=== PATIENT | female | born 1970 | race Caucasian/White ===

== ENCOUNTER 2018-08-05 21:31 | Emergency (ER) | payer BC ==
[~2018-08-05] VITALS: Ht 172.7 cm; Wt 64.4 kg
[2018-08-05] MEDS ORDERED: ENAL10TA19 PO (22:06)
[2018-08-05] MEDS ORDERED: AMOX-427 PO (22:06)
[2018-08-05] MEDS ORDERED: DICYCLOMINE HCL LIQ 10 MG/5 ML UDC ONE (22:39)
[2018-08-05] MEDS ORDERED: MAG HYDROX/AL HYDROX/SIMETH 30 ML LIQUID UDC ONE (22:39)
[2018-08-05] MEDS ORDERED: MAG HYDROX/AL HYDROX/SIMETH 30 ML LIQUID UDC PO ONE (22:45)
[2018-08-05] MEDS ORDERED: DICYCLOMINE HCL LIQ 10 MG/5 ML UDC PO ONE (22:45)
[2018-08-05 22:52] VITALS: BP 124/70
== END 2018-08-05 22:53 | disposition home or self-care (01) ==
LOC: ER 21:33
DX: J02.9 Acute pharyngitis, unspecified (principal); R10.13 Epigastric pain; Z88.8 Allergy status to other drugs, medicaments and biological substances; Z79.899 Other long term (current) drug therapy
CPT/HCPCS: A4663

== ENCOUNTER 2018-11-11 19:27 | Emergency (ER) | payer BC ==
[~2018-11-11] VITALS: Ht 152.4 cm; Wt 66.7 kg
[~2018-11-11 19:27] MED LIST: AMOX-427 PO; ENAL10TA19 PO
[2018-11-11] MEDS ORDERED: OMEPRAZOLE DR 40 MG CAPSULE (20:02)
[2018-11-11] MEDS ORDERED: ENALAPRIL MALEATE 10 MG TAB (20:02)
--- NOTE | 2018-11-11 20:14 | NUR ---
Pt. ambulated into ED accompanied by daughter w/ c/o bilat., lower abdominal pain x 2 days w/ stated blood in urine, A/Ox4, denies SOB/WRIGHT/F/C/N/V/D, RR even and unlabored, speaks in clear and complete sentences,
[2018-11-11 20:26] LABS: *BILIRUBIN,URIN NEGATIVE (NEGATIVE); *BLOOD, URINE 3+ (NEGATIVE); *CLARITY,URINE CLOUDY (CLEAR); *KETONES,URINE NEGATIVE (NEGATIVE); *UROBILINOGEN,URINE 0.2 E.U./dl (NORMAL); LEUKOCYTE ESTERASE ,URINE NEGATIVE (NEGATIVE); NITRITE, URINE NEGATIVE (NEGATIVE); UGLUCOSE NEGATIVE (NEGATIVE)
--- NOTE | 2018-11-11 20:27 | NUR ---
Urine specimen collected and sent to lab, specimen is pink and cloudy
[2018-11-11 20:28] LABS: *URINE HCG, QUAL NEGATIVE (NEGATIVE)
[2018-11-11 20:29] LABS: *COLOR,URINE RED (YELLOW)
[2018-11-11 20:33] LABS: RBC,URINE TNTC /HPF (0-3); WBC,URINE 0-3 /HPF (0-3)
[2018-11-11] MEDS ORDERED: IV NORMAL SALINE 1000 ML BAG IV ONE (21:00)
[2018-11-11] MEDS ORDERED: ONDANSETRON 4 MG/2 ML VIAL IV ONE (21:00)
[2018-11-11] MEDS ORDERED: KETOROLAC TROMETHAMINE 30 MG INJ IVP ONE (21:00)
[2018-11-11 21:10] LABS: BASOPHILS # (AUTO) 0.1 K/uL (0.0-8.0); BASOPHILS % (AUTO) 1.4 % (0.0-2.0); EOSINOPHILS # (AUTO) 0.1 K/uL (0.0-0.7); EOSINOPHILS % (AUTO) 1.3 % (0.0-7.0); HEMOGLOBIN 12.4 g/dL (10.9-14.3); LYMPHOCYTES # (AUTO) 2.2 K/uL (20.0-40.0); LYMPHOCYTES % (AUTO) 38.9 % (20.5-51.5); MEAN CORPUSCULAR HEMOGLOBIN 29.7 uug (24.7-32.8); MEAN CORPUSCULAR HGB CONC 33 g/dL (32.3-35.6); MEAN CORPUSCULAR VOLUME 90.8 fL (75.5-95.3); MONOCYTES # (AUTO) 0.6 K/uL (2.0-10.0); MONOCYTES % (AUTO) 9.8 % (0.0-11.0); NEUTROPHILS # (AUTO) 2.8 K/uL (1.8-8.9); NEUTROPHILS % (AUTO) 48.6 % (38.5-71.5); PLATELET COUNT (AUTO) 330 K/uL (179-408); RED BLOOD CELL COUNT(AUTO) 4.18 MIL/uL (3.63-4.92); WHITE BLOOD COUNT (AUTO) 5.8 K/uL (3.8-11.8)
[2018-11-11] MEDS ORDERED: KETOROLAC TROMETHAMINE 15 MG INJ ONE (21:10)
[2018-11-11] MEDS ORDERED: ONDANSETRON 4 MG/2 ML VIAL ONE (21:10)
[2018-11-11 21:18] LABS: CREATININE 0.7 mg/dL (0.6-1.3)
--- NOTE | 2018-11-11 22:16 | NUR ---
Patient discharged to home in stable conditon. Written and verbal after care instructions given. Patient verbalizes understanding of instructions. Pt. d/c w/ prescription per MD order, d/c papers signed, all belongings w/ pt., ID band/IV removed, instructed not to drive, ambulated off unit w/ steady gait, NAD
== END 2018-11-11 22:20 | disposition home or self-care (01) ==
LOC: ER 19:27
DX: R31.0 Gross hematuria (principal); K21.9 Gastro-esophageal reflux disease without esophagitis; Z88.8 Allergy status to other drugs, medicaments and biological substances; Z79.899 Other long term (current) drug therapy
CPT/HCPCS: 36415; 76770; 80048; 81000; 81001; 84703; 85025; 96374; 96375; 99284; J1885; J2405; A4663; J7030

== ENCOUNTER 2020-08-28 21:05 | Inpatient (IN) | payer BC ==
[~2020-08-28] VITALS: Ht 170.2 cm; Wt 74.8 kg
[~2020-08-28 21:05] MED LIST changes: -AMOX-427 PO; -ENAL10TA19 PO; +ENALAPRIL MALEATE 10 MG TAB; +OMEPRAZOLE DR 40 MG CAPSULE
--- NOTE | 2020-08-28 21:29 | NUR ---
MD RAMÍREZ in room to do MSE.
--- NOTE | 2020-08-28 21:40 | NUR ---
installation and repair technician in room to draw labs.
[2020-08-28] MEDS ORDERED: IV NS 1000 ML 1,000 ML IV ONE (21:45)
[2020-08-28] MEDS ORDERED: ONDANSETRON 4 MG/2 ML VIAL IV ONE (21:45)
[2020-08-28] MEDS ORDERED: HYDROMORPHONE 1 MG/1 ML DISP.SYRIN IV ONE (21:45)
--- NOTE | 2020-08-28 21:45 | NUR ---
Patient states feeling nauseous and vomited twice.
[2020-08-28 21:52] LABS: BASOPHILS # (AUTO) 0.1 K/uL (0.0-8.0); BASOPHILS % (AUTO) 0.6 % (0.0-2.0); EOSINOPHILS % (AUTO) 0.2 % (0.0-7.0); HEMATOCRIT 38.3 % (31.2-41.9); HEMOGLOBIN 12.6 g/dL (10.9-14.3); LYMPHOCYTES # (AUTO) 1.1 K/uL (20.0-40.0); LYMPHOCYTES % (AUTO) 9.2 % (20.5-51.5); MEAN CORPUSCULAR HEMOGLOBIN 29.2 uug (24.7-32.8); MEAN CORPUSCULAR HGB CONC 33 g/dL (32.3-35.6); MEAN CORPUSCULAR VOLUME 88.6 fL (75.5-95.3); MONOCYTES # (AUTO) 0.6 K/uL (2.0-10.0); NEUTROPHILS # (AUTO) 9.7 K/uL (1.8-8.9); PLATELET COUNT (AUTO) 313 K/uL (179-408); RED BLOOD CELL COUNT(AUTO) 4.32 MIL/uL (3.63-4.92); WHITE BLOOD COUNT (AUTO) 11.4 K/uL (3.8-11.8)
[2020-08-28 21:55] LABS: CARBON DIOXIDE 27 mmol/L (21-32); CHLORIDE 101 mmol/L (98-107); CREATININE 0.8 mg/dL (0.6-1.3); GLUCOSE 158 mg/dL (74-106); POTASSIUM 4.8 mmol/L (3.5-5.1); UREA NITROGEN, BLOOD 18 mg/dL (7-18)
[2020-08-28 22:01] LABS: ALANINE AMINOTRANSFERASE 141 U/L (14-59); ALKALINE PHOSPHATASE 135 U/L (50-136); ASPARTATE AMINOTRANSFERASE 212 U/L (15-37); BILIRUBIN,DIRECT 0.6 mg/dL (0.0-0.2); BILIRUBIN,TOTAL 1.1 mg/dL (0.2-1.0); TOTAL PROTEIN, SERUM 6.8 g/dL (6.4-8.2)
[2020-08-28] MEDS ORDERED: LEVO500T90 PO (22:05)
[2020-08-28] MEDS ORDERED: HYDROMORPHONE 1 MG/1 ML DISP.SYRIN ONE (22:05)
[2020-08-28] MEDS ORDERED: ONDANSETRON 4 MG/2 ML VIAL ONE (22:05)
[2020-08-28 22:13] LABS: *BILIRUBIN,URIN NEGATIVE (NEGATIVE); *CLARITY,URINE CLEAR (CLEAR); *COLOR,URINE YELLOW (YELLOW); *KETONES,URINE 2+ (NEGATIVE); *UROBILINOGEN,URINE 0.2 E.U./dl (NORMAL); LEUKOCYTE ESTERASE ,URINE NEGATIVE (NEGATIVE); NITRITE, URINE NEGATIVE (NEGATIVE); PH,URINE 8.5 (5.0-8.0); UGLUCOSE NEGATIVE (NEGATIVE)
--- NOTE | 2020-08-28 22:15 | NUR ---
Patient desating on SpO2 to 86%. Patient given O2 via N/C 2 LPM: SpO2 increased to 100%.
[2020-08-28 22:24] LABS: *BLOOD, URINE TRACE (NEGATIVE)
[2020-08-28 22:26] LABS: RBC,URINE 0-3 /HPF (0-3); WBC,URINE NONE SEEN /HPF (0-3)
[2020-08-28 22:27] LABS: *URINE HCG, QUAL NEGATIVE (NEGATIVE); BACTERIA,URINE NONE SEEN /HPF (NONE SEEN); SQUAMOUS EPITHELIAL CELL,UR FEW /HPF (NONE SEEN)
--- NOTE | 2020-08-28 22:30 | NUR ---
Patient states feeling pain of right AC, IV infiltrated. New one placed: 20g L AC
[2020-08-28 22:41] LABS: LIPASE > 6000 U/L (73-393)
--- NOTE | 2020-08-28 22:45 | NUR ---
U/S tech in room to do ultrasound on patient.
[2020-08-28] MEDS ORDERED: IV NORMAL SALINE 250 ML IV ONE (22:49)
[2020-08-28] MEDS ORDERED: SWABABLE VALVE TRANSFER SET EA MC ONE (22:49)
[2020-08-28] MEDS ORDERED: IOHEXOL 300MG/ML 100 ML INFUS..BTL ONE (22:49)
--- NOTE | 2020-08-28 23:16 | NUR ---
transport tech in room to take patient to get CT with contrast.
--- NOTE | 2020-08-28 23:43 | NUR ---
Patient returned from CT scan with contrast.
--- NOTE | 2020-08-29 | NUR ---
Patient is resting on bed, semi-fowlers. No longer gaurding her abdomen.
[2020-08-29] MEDS ORDERED: ENAL-80 PO (00:09)
[2020-08-29] MEDS ORDERED: GABA-532 PO (00:09)
[2020-08-29] MEDS ORDERED: ESCI5TAB PO (00:09)
[2020-08-29] MEDS ORDERED: CALC-953 PO (00:09)
[2020-08-29] MEDS ORDERED: IV LACTATED RINGERS SOLUTION 1,000 ML IV ONE (00:15)
[2020-08-29] MEDS ORDERED: HYDROMORPHONE 1 MG/1 ML DISP.SYRIN IV ONE (00:15)
--- NOTE | 2020-08-29 00:45 | NUR ---
CT with Contrast results received, MD Tse requested for [facility] to be called. MD Alfredo paged.
--- NOTE | 2020-08-29 00:53 | NUR ---
MD Alfredo called back, call transferred to MD Tse.
[2020-08-29] MEDS ORDERED: HYDROCODONE/APAP 5-325MG TABLET PO PRN (01:00)
[2020-08-29] MEDS ORDERED: MAGNESIUM HYDROXIDE 30 ML LIQUID UDC PO PRN (01:00)
[2020-08-29] MEDS ORDERED: Z GUARD REMEDY PASTE 57 GM TUBE TOP PRN (01:00)
[2020-08-29] MEDS ORDERED: ACETAMINOPHEN 325 MG TABLET PO PRN (01:00)
[2020-08-29] MEDS ORDERED: PIPERACILLIN SODIUM/TAZOBACTAM 3.375 G in IV DEXTROSE 5% 50 ML IV ONE (01:00)
[2020-08-29] MEDS ORDERED: PIPERACILLIN/TAZOBACTAM/D5W 50 ML IV ONE (01:19)
[2020-08-29] MEDS: IV NS 1000 ML 1,000 ML IV SCH ×2 (01:20→02:15)
--- NOTE | 2020-08-29 01:45 | NUR ---
nuclear medical tech notified, pt is COVID negative.
--- NOTE | 2020-08-29 01:46 | NUR ---
Report given to SUKI Hendrix.
--- NOTE | 2020-08-29 02:08 | NUR ---
Note brenda in ED - 08/29/20 at 0221 by TRISTA Pt. admitted to Med/Surg 308, under care of Dr. Osorio. Belongs List completed, transported with all original paperwork.
--- NOTE | 2020-08-29 02:08 | NUR ---
Pt. admitted to Med/Surg 308, under care of Dr. Alfredo. Belongs List completed, transported with all original paperwork.
--- NOTE | 2020-08-29 02:15 | NUR ---
Admitted patient to Med Surg unit from ER via [facility] accompanied by ER.Patient awake ALOx4. IV on left AC 20g patent and intact with IVF NS running at 100 cc/hr. Patient feeling nauseous.Medicated with zofran IVP with good result. Patient also c/o abd'l pain 8/10.Noted with facial grimaces. Morphine IVP given.Skin assessment done.No skin breakdown. Patient ambulates to bathroom.Safety measures in place. Call light with in reach .Will continue to monitor.VSS
[2020-08-29 02:20] VITALS: BP 127/71
[2020-08-29] MEDS: ONDANSETRON 4 MG/2 ML VIAL IV PRN ×2 (02:30→08:34)
[2020-08-29] MEDS: MORPHINE SULFATE 2 MG/1 ML DISP.SYRIN IV PRN ×2 (03:05→07:52)
[2020-08-29 04:00] VITALS: BP_SYST 120; BP_DIAS 85; BP_DIAS 89
[2020-08-29 06:44] LABS: BASOPHILS % (AUTO) 0.1 % (0.0-2.0); HEMATOCRIT 35.1 % (31.2-41.9); HEMOGLOBIN 11.9 g/dL (10.9-14.3); LYMPHOCYTES # (AUTO) 0.5 K/uL (20.0-40.0); MEAN CORPUSCULAR HGB CONC 34 g/dL (32.3-35.6); MEAN CORPUSCULAR VOLUME 88.8 fL (75.5-95.3); MONOCYTES # (AUTO) 0.5 K/uL (2.0-10.0); MONOCYTES % (AUTO) 4.7 % (0.0-11.0); NEUTROPHILS # (AUTO) 8.7 K/uL (1.8-8.9); NEUTROPHILS % (AUTO) 90.2 % (38.5-71.5); PLATELET COUNT (AUTO) 267 K/uL (179-408); RED BLOOD CELL COUNT(AUTO) 3.96 MIL/uL (3.63-4.92); WHITE BLOOD COUNT (AUTO) 9.6 K/uL (3.8-11.8)
[2020-08-29] MEDS ORDERED: ESCITALOPRAM OXALATE 10 MG TABLET PO SCH (09:00)
[2020-08-29] MEDS ORDERED: CALCIUM CARB/VITAMIN D 500MG-200UNITS TABLET PO SCH (09:00)
[2020-08-29] MEDS ORDERED: levoFLOXacin 500 MG TABLET PO SCH (09:00)
[2020-08-29] MEDS ORDERED: ENALAPRIL 10 MG TABLET PO SCH (09:00)
[2020-08-29] MEDS: GABAPENTIN 100 MG CAPSULE PO SCH ×2 (09:00→17:05)
[2020-08-29 09:14] LABS: CARBON DIOXIDE 26 mmol/L (21-32); CHLORIDE 104 mmol/L (98-107); CHOLESTEROL 205 mg/dL (<200); CREATININE 0.6 mg/dL (0.6-1.3); GLUCOSE 124 mg/dL (74-106); HDL CHOLESTEROL 61 mg/dL (40-60); MAGNESIUM 1.8 mg/dL (1.8-2.4); PHOSPHOROUS 3.9 mg/dL (2.5-4.9); POTASSIUM 4.3 mmol/L (3.5-5.1); TRIGLYCERIDES 63 MG/DL (30-150); UREA NITROGEN, BLOOD 14 mg/dL (7-18)
[2020-08-29 10:00] LABS: LIPASE > 6000 U/L (73-393)
[2020-08-29] MEDS: levoFLOXacin 500 MG/D5W 500 MG in PREMIXED 1 EACH IV SCH (10:30)
[2020-08-29 11:47] VITALS: BP 138/75
[2020-08-29] MEDS: METOCLOPRAMIDE HCL 10 MG/2 ML VIAL IV SCH ×3 (12:20→23:46)
[2020-08-29] MEDS: HYDROMORPHONE 1 MG/1 ML DISP.SYRIN IV PRN ×3 (12:52→23:51)
[2020-08-29 16:00] VITALS: BP 114/60
--- NOTE | 2020-08-29 17:56 | NUR ---
Pt continue to complain of pain in abdomen, as ordered PRN pain medication administered, tolerated well; complain of nausea, administered with PRN zofran, and MD added Q6 reglan, continue with IVF NS running at 100 cc/hr, patent no edema, no redness. she was also given IV levaquin 500mg QD. Diet was changed to clear liquid. pt able to ambulate with BRP. frequent visual check done for safety. needs attended to and met. will continue to monitor
--- NOTE | 2020-08-29 19:30 | NUR ---
RECEIVED PT AWAKE, ALERT AND ORIENTEDX4. PT IN NO ACUTE DISTRESS. IV INTACT. OBSERVED PT HAS REDNESS/RASH ON FACE AND CHEST AREA. SAFETY AND COMFORT PROVIDED. WILL CONTINUE TO MONITOR.
[2020-08-29 20:00] VITALS: BP 120/64
[2020-08-29] MEDS ORDERED: diphenhydrAMINE 25 MG CAP PO PRN (20:15)
[2020-08-29] MEDS: IV NS 1000 ML 1,000 ML IV PRN (20:50)
--- NOTE | 2020-08-29 20:55 | NUR ---
NOTIFY THAT PT COMPLAIN OF ITCHINESS AND REDNESS ON FACE AND CHEST AREA. DR ORDERED BENADRYL PRN FOR PT. KATIE NEVAREZ NP ORDERED FOR NORMAL SALINE Q10H PRN AT 100ML/HR.
[2020-08-30 04:00] VITALS: BP 105/55
[2020-08-30] MEDS: METOCLOPRAMIDE HCL 10 MG/2 ML VIAL IV SCH ×4 (05:58→23:40)
--- NOTE | 2020-08-30 06:34 | NUR ---
PT SLEPT INTERMITTENTLY. PT IN NO ACUTE DISTRESS. IV INTACT. PRESCRIBED MEDICATION GIVEN AND PT TOLERATED IT WELL. AT 2351H DILAUDID INJ 0.5MG PRN WAS GIVEN TO PT FOR PAIN. AFTER AN HOUR PT STATED SHE FELT RELIEVED. BENADRYL PRN GIVEN AT 25MG FOR ITCHINESS. SAFETY AND COMFORT PROVIDED. ALL NEEDS ARE MET. WILL ENDORSE TO INCOMING NURSE FOR CONTINUITY OF CARE.
[2020-08-30 06:39] LABS: BASOPHILS % (AUTO) 0.2 % (0.0-2.0); HEMATOCRIT 34.4 % (31.2-41.9); HEMOGLOBIN 11.3 g/dL (10.9-14.3); LYMPHOCYTES # (AUTO) 0.7 K/uL (20.0-40.0); LYMPHOCYTES % (AUTO) 6.9 % (20.5-51.5); MEAN CORPUSCULAR HEMOGLOBIN 29.2 uug (24.7-32.8); MEAN CORPUSCULAR HGB CONC 33 g/dL (32.3-35.6); MEAN CORPUSCULAR VOLUME 89.3 fL (75.5-95.3); MONOCYTES # (AUTO) 0.8 K/uL (2.0-10.0); NEUTROPHILS # (AUTO) 8.9 K/uL (1.8-8.9); NEUTROPHILS % (AUTO) 84.9 % (38.5-71.5); PLATELET COUNT (AUTO) 258 K/uL (179-408); RED BLOOD CELL COUNT(AUTO) 3.85 MIL/uL (3.63-4.92); WHITE BLOOD COUNT (AUTO) 10.5 K/uL (3.8-11.8)
[2020-08-30] MEDS: IV NS 1000 ML 1,000 ML IV PRN ×2 (06:51→19:28)
[2020-08-30] MEDS: HYDROMORPHONE 1 MG/1 ML DISP.SYRIN IV PRN ×3 (06:52→19:37)
[2020-08-30 06:55] LABS: ALANINE AMINOTRANSFERASE 70 U/L (14-59); ALKALINE PHOSPHATASE 86 U/L (50-136); ASPARTATE AMINOTRANSFERASE 37 U/L (15-37); BILIRUBIN,DIRECT 0.2 mg/dL (0.0-0.2); BILIRUBIN,TOTAL 0.8 mg/dL (0.2-1.0); CARBON DIOXIDE 29 mmol/L (21-32); CHLORIDE 105 mmol/L (98-107); CREATININE 0.5 mg/dL (0.6-1.3); GLUCOSE 103 mg/dL (74-106); MAGNESIUM 1.8 mg/dL (1.8-2.4); POTASSIUM 3.6 mmol/L (3.5-5.1); TOTAL PROTEIN, SERUM 5.5 g/dL (6.4-8.2); UREA NITROGEN, BLOOD 10 mg/dL (7-18)
--- NOTE | 2020-08-30 07:19 | NUR ---
Dilaudid prn given at 0652h for abdominal pain. Pt tolerated it well. Pt stated it helped with the pain. Pt vital signs stable. Will continue to monitor.
[2020-08-30 07:26] LABS: LIPASE 9675 U/L (73-393)
--- NOTE | 2020-08-30 07:30 | NUR ---
Received patient awake in bed. On room air. No signs of acute distress. Patient with left antecubital IV access 20gauge with NS running at 100ml/hr. Patient denies of any pain or discomfort at this time. Will continue to monitor.
[2020-08-30] MEDS: GABAPENTIN 300 MG CAPSULE PO SCH ×2 (08:27→16:30)
[2020-08-30] MEDS: levoFLOXacin 500 MG/D5W 500 MG in PREMIXED 1 EACH IV SCH (09:31)
[2020-08-30 11:43] VITALS: BP 106/64
[2020-08-30 16:00] VITALS: BP 113/69
--- NOTE | 2020-08-30 19:15 | NUR ---
Received pt sitting in bed, A&Ox4, verbally responsive, able to make needs known. No s/s of respiratory distress, abdominal pain of 8/10 reported. IVF infusing well on L AC. Safety and comfort measures initiated, call light within reach, will continue to monitor.
--- NOTE | 2020-08-30 19:30 | NUR ---
Patient awake resting in bed. Alert and oriented x 4. No signs of acute distress. IV NS running at 100cc/hr. Safety and comfort measures provided. Compliant with medications and tolerated well. Will endorse to incoming shift.
[2020-08-30 20:05] VITALS: BP 128/78
[2020-08-31] MEDS: HYDROMORPHONE 1 MG/1 ML DISP.SYRIN IV PRN ×5 (00:17→22:34)
[2020-08-31 02:05] VITALS: BP 128/78
[2020-08-31 04:05] VITALS: BP 104/66
[2020-08-31] MEDS: METOCLOPRAMIDE HCL 10 MG/2 ML VIAL IV SCH ×3 (05:58→16:42)
[2020-08-31] MEDS: IV NS 1000 ML 1,000 ML IV PRN ×2 (06:07→16:46)
--- NOTE | 2020-08-31 06:20 | NUR ---
Pt slept intermittently through the night. No s/s of respiratory distress. PRN pain medication given as ordered. Tolerated medications well. IVF infusing well on L AC. Safety and comfort measures maintained, call light within reach, all needs attended.
[2020-08-31 06:37] LABS: BASOPHILS % (AUTO) 0.3 % (0.0-2.0); EOSINOPHILS % (AUTO) 0.1 % (0.0-7.0); HEMATOCRIT 29.5 % (31.2-41.9); LYMPHOCYTES % (AUTO) 8.7 % (20.5-51.5); MEAN CORPUSCULAR HEMOGLOBIN 30.5 uug (24.7-32.8); MEAN CORPUSCULAR HGB CONC 34 g/dL (32.3-35.6); MEAN CORPUSCULAR VOLUME 90.3 fL (75.5-95.3); MONOCYTES # (AUTO) 0.9 K/uL (2.0-10.0); MONOCYTES % (AUTO) 7.7 % (0.0-11.0); NEUTROPHILS # (AUTO) 9.4 K/uL (1.8-8.9); NEUTROPHILS % (AUTO) 83.2 % (38.5-71.5); PLATELET COUNT (AUTO) 229 K/uL (179-408); RED BLOOD CELL COUNT(AUTO) 3.27 MIL/uL (3.63-4.92); WHITE BLOOD COUNT (AUTO) 11.3 K/uL (3.8-11.8)
[2020-08-31 06:49] LABS: BILIRUBIN,DIRECT 0.5 mg/dL (0.0-0.2); BILIRUBIN,TOTAL 0.9 mg/dL (0.2-1.0); CREATININE 0.6 mg/dL (0.6-1.3); MAGNESIUM 1.8 mg/dL (1.8-2.4); POTASSIUM 3.4 mmol/L (3.5-5.1)
[2020-08-31] MEDS: levoFLOXacin 500 MG/D5W 500 MG in PREMIXED 1 EACH IV SCH (08:30)
[2020-08-31] MEDS: GABAPENTIN 300 MG CAPSULE PO SCH ×2 (08:30→16:43)
[2020-08-31] MEDS ORDERED: POTASSIUM CHLORIDE 20 MEQ TAB.PRT.SR PO SCH (10:00)
--- NOTE | 2020-08-31 11:15 | NUR ---
D/C TO HOME VIA PRIVATE RIDE. D/C INSTRUCTIONS DISCUSSED. STATES SHE HAS AN APPT ON THURSDAY OF NEXT WEEK FOR HER F/U WITH SURGEON. STATES SHE HAS RECEIVED HER PRESCRIPTIONS FROM THE MD. VERBALIZED UNDERSTANDING OF ALL D/C INSTRUCTIONS. REFUSED SURGICAL D/C PICS. SHE SAYS SHE WILL LET HER DOC LOOK AT IT DOES NOT WANT TO REMOVE HER DRSG. TAKEN TO CAR BY MINIATURE SET CONSTRUCTOR VIA W/C Addendum: 08/31/20 at 1210 by Bonny Dubois RN PLEASE DISREGARD THIS NOTE WRITTEN ON WRONG PT
[2020-08-31 11:56] VITALS: BP 102/61
[2020-08-31 16:04] VITALS: BP 103/60
[2020-08-31 20:01] VITALS: BP 115/72
[2020-08-31] MEDS: ACETAMINOPHEN 325 MG TABLET PO PRN (21:47)
--- NOTE | 2020-08-31 22:14 | NUR ---
Patient alert x4.On RA .No s/s of distress noted. Iv on Left AC patent and intact with IVF Ns running at 100 ml/hr.Tolerated well.Patient noted with temp of 101 . made aware with new order given noted and carried our.Tylenol given. UA collected and sent to lab. Will continue to monitor.
[2020-09-01] MEDS: METOCLOPRAMIDE HCL 10 MG/2 ML VIAL IV SCH ×4 (00:14→17:14)
[2020-09-01 01:04] LABS: *BILIRUBIN,URIN NEGATIVE (NEGATIVE); *BLOOD, URINE 2+ (NEGATIVE); *CLARITY,URINE CLEAR (CLEAR); *COLOR,URINE YELLOW (YELLOW); *KETONES,URINE 3+ (NEGATIVE); LEUKOCYTE ESTERASE ,URINE NEGATIVE (NEGATIVE); NITRITE, URINE NEGATIVE (NEGATIVE); PH,URINE 6.5 (5.0-8.0); UGLUCOSE NEGATIVE (NEGATIVE)
[2020-09-01 01:20] LABS: BACTERIA,URINE NONE SEEN /HPF (NONE SEEN); SQUAMOUS EPITHELIAL CELL,UR FEW /HPF (NONE SEEN); WBC,URINE 0-3 /HPF (0-3)
[2020-09-01 04:57] VITALS: BP 106/61
[2020-09-01] MEDS: IV NS 1000 ML 1,000 ML IV PRN (04:59)
[2020-09-01] MEDS: HYDROMORPHONE 1 MG/1 ML DISP.SYRIN IV PRN ×3 (06:50→18:52)
[2020-09-01 06:59] LABS: BASOPHILS % (AUTO) 0.3 % (0.0-2.0); EOSINOPHILS % (AUTO) 0.1 % (0.0-7.0); HEMATOCRIT 29.4 % (31.2-41.9); HEMOGLOBIN 9.7 g/dL (10.9-14.3); LYMPHOCYTES # (AUTO) 1.1 K/uL (20.0-40.0); LYMPHOCYTES % (AUTO) 10.9 % (20.5-51.5); MEAN CORPUSCULAR HEMOGLOBIN 29.5 uug (24.7-32.8); MEAN CORPUSCULAR HGB CONC 33 g/dL (32.3-35.6); MEAN CORPUSCULAR VOLUME 89.6 fL (75.5-95.3); MONOCYTES # (AUTO) 0.8 K/uL (2.0-10.0); MONOCYTES % (AUTO) 7.9 % (0.0-11.0); NEUTROPHILS # (AUTO) 7.9 K/uL (1.8-8.9); NEUTROPHILS % (AUTO) 80.8 % (38.5-71.5); PLATELET COUNT (AUTO) 230 K/uL (179-408); RED BLOOD CELL COUNT(AUTO) 3.29 MIL/uL (3.63-4.92); WHITE BLOOD COUNT (AUTO) 9.8 K/uL (3.8-11.8)
[2020-09-01 08:14] LABS: BILIRUBIN,DIRECT 0.2 mg/dL (0.0-0.2); BILIRUBIN,TOTAL 0.7 mg/dL (0.2-1.0); CREATININE 0.6 mg/dL (0.6-1.3); MAGNESIUM 2.1 mg/dL (1.8-2.4); POTASSIUM 3.8 mmol/L (3.5-5.1); TOTAL PROTEIN, SERUM 5.6 g/dL (6.4-8.2)
[2020-09-01] MEDS: GABAPENTIN 300 MG CAPSULE PO SCH ×2 (08:39→16:02)
--- NOTE | 2020-09-01 09:36 | NUR ---
ALERT AND ORIENTED IV SITE IS LEAKING WILL TRY TO REINSERT ONLY TOLERATED HER SOUP FROM HER CLEAR LIQUIDS DIET STATED NOT HUNGRY AT THIS TIME ALL NEEDS AND PERSONAL BELONGINGS ARE WITHIN EASY REACH DENIES NAUSEA OR VOMITING WILL CONTINUE TO OBSERVE.
--- NOTE | 2020-09-01 09:50 | NUR ---
IV REINSERTED TO HER RIGHT HAND GAUGE 20 WILL CONTINUE TO OBSERVE.
[2020-09-01] MEDS ORDERED: levoFLOXacin 500 MG TABLET PO SCH (10:00)
[2020-09-01 11:48] VITALS: BP 121/72
--- NOTE | 2020-09-01 14:06 | NUR ---
PATIENT SEEN AND EXAMINED BY KATIE NEVAREZ GRANULATOR WITH NEW ORDERS AND NOTED.
[2020-09-01] MEDS ORDERED: MEROPENEM 1 G in IV NORMAL SALINE 100 ML IV ONE (16:00)
[2020-09-01 16:08] VITALS: BP 122/66
--- NOTE | 2020-09-01 16:41 | NUR ---
REMAIN ON IVPB ATB ORDERED WITH NO ADVERSE OR ALLERGIC REACTIONS AT THIS TIME IV SITE RIGHT HAND REMAINS INTACT WITH NO S/S OF INFILTERATION AT THIS TIME.
--- NOTE | 2020-09-01 19:01 | NUR ---
CONSCENT FOR CT ABDOMEN AND PELVIS OBTAINED ORDERED CALLED THE RADIOLOGY DEPT AND BECAUSE PATIENT ATE DINNER THEY WILL BE HERE AT 9PM TO PICK HER UP FOR THE TESTS.PATIENT NOTIFIED.MEDICATED FOR C/O ABD PAIN ORDERED WILL CONTINUE TO OBSERVE.
[2020-09-01 19:57] VITALS: BP 105/65
[2020-09-01] MEDS ORDERED: SWABABLE VALVE TRANSFER SET EA MC ONE (21:05)
[2020-09-01] MEDS ORDERED: IV NORMAL SALINE 250 ML IV ONE (21:05)
[2020-09-01] MEDS ORDERED: IOHEXOL 300MG/ML 100 ML INFUS..BTL ONE (21:05)
--- NOTE | 2020-09-01 21:33 | NUR ---
Patient back from radiology dept for Ct abdomen and pelvis w/ contrast.Still c/o abd'l pain tolerable at this time.Refused pain medication at this time.Iv on right hand patent and intact.Adm IV ATb.No A/r noted. Will continue to monitor.
[2020-09-01] MEDS: MEROPENEM 1 G in IV NORMAL SALINE 100 ML IV SCH (23:18)
[2020-09-01] MEDS: ACETAMINOPHEN 325 MG TABLET PO PRN (23:29)
[2020-09-02] MEDS: METOCLOPRAMIDE HCL 10 MG/2 ML VIAL IV SCH ×4 (00:05→17:13)
[2020-09-02] MEDS: MEROPENEM 1 G in IV NORMAL SALINE 100 ML IV SCH (05:01)
[2020-09-02 05:42] VITALS: BP 104/64
[2020-09-02] MEDS: HYDROMORPHONE 1 MG/1 ML DISP.SYRIN IV PRN ×3 (06:55→21:24)
--- NOTE | 2020-09-02 06:57 | NUR ---
Patient awake.c/o abd'l pain.Medicated with Dilaudid IVP .No acute distress noted throughout the shift.VSS .Will endorse to oncoming shift.
[2020-09-02 07:03] LABS: BASOPHILS % (AUTO) 0.4 % (0.0-2.0); EOSINOPHILS % (AUTO) 0.4 % (0.0-7.0); HEMATOCRIT 26.7 % (31.2-41.9); HEMOGLOBIN 8.8 g/dL (10.9-14.3); LYMPHOCYTES # (AUTO) 0.9 K/uL (20.0-40.0); LYMPHOCYTES % (AUTO) 12.2 % (20.5-51.5); MEAN CORPUSCULAR HEMOGLOBIN 29.7 uug (24.7-32.8); MEAN CORPUSCULAR HGB CONC 33 g/dL (32.3-35.6); MEAN CORPUSCULAR VOLUME 90.1 fL (75.5-95.3); MONOCYTES # (AUTO) 0.8 K/uL (2.0-10.0); MONOCYTES % (AUTO) 10.3 % (0.0-11.0); NEUTROPHILS # (AUTO) 5.9 K/uL (1.8-8.9); NEUTROPHILS % (AUTO) 76.7 % (38.5-71.5); PLATELET COUNT (AUTO) 242 K/uL (179-408); RED BLOOD CELL COUNT(AUTO) 2.96 MIL/uL (3.63-4.92); WHITE BLOOD COUNT (AUTO) 7.7 K/uL (3.8-11.8)
[2020-09-02 07:23] LABS: ALANINE AMINOTRANSFERASE 34 U/L (14-59); ALKALINE PHOSPHATASE 86 U/L (50-136); ASPARTATE AMINOTRANSFERASE 23 U/L (15-37); BILIRUBIN,DIRECT 0.4 mg/dL (0.0-0.2); BILIRUBIN,TOTAL 0.4 mg/dL (0.2-1.0); CARBON DIOXIDE 29 mmol/L (21-32); CHLORIDE 105 mmol/L (98-107); CREATININE 0.5 mg/dL (0.6-1.3); GLUCOSE 111 mg/dL (74-106); MAGNESIUM 2.3 mg/dL (1.8-2.4); POTASSIUM 3.9 mmol/L (3.5-5.1); TOTAL PROTEIN, SERUM 5.1 g/dL (6.4-8.2); UREA NITROGEN, BLOOD 5 mg/dL (7-18)
[2020-09-02 07:41] LABS: LIPASE 144 U/L (73-393)
[2020-09-02] MEDS: GABAPENTIN 300 MG CAPSULE PO SCH ×2 (08:05→16:24)
--- NOTE | 2020-09-02 08:30 | NUR ---
PATIENT IS AWAKE ALERT AND ORIENTED WITH SOME LANGUAGE BARRIER BUT ABLE TO MAKE NEEDS KNOWN NO S/S OF PAIN OR DISCOMFORTS AT THIS TIME REMAIN ON ATB ORDERED WITH NO ADVERSE OR ALLERGIC REACTIONS AT THIS TIME BREAKFAST SERVED ORDERED PATIENT STATED NOT HUNGRY YET WILL ATTEMPT TO EAT LATER.CALL LIGHTS AND HER PERSONAL BELONGINGS ARE WITHIN EASY REACH NOT IN DISTRESS AT THIS TIME
[2020-09-02] MEDS: levoFLOXacin 750MG/D5W 750 MG in PREMIXED 1 EACH IV SCH (09:26)
[2020-09-02 11:39] VITALS: BP 111/66
--- NOTE | 2020-09-02 13:45 | NUR ---
PATIENT AWARE THAT SHE WILL HAVE PARACENTESIS WAS EXPLAINED TO HER AND HER DAUGHTER BY ROQUE MCGOVERN AND SHE EXPRESSED UNDERSTANDING AND SIGNED CONSCENT.
[2020-09-02] MEDS ORDERED: PIPERACILLIN SODIUM/TAZOBACTAM 4.5 G in IV DEXTROSE 5% 50 ML IV ONE (14:00)
--- NOTE | 2020-09-02 15:28 | NUR ---
REMAIN ON ATB ORDERED WITH NO ADVERSE OR ALLERGIC REACTIONS AT THIS TIME CONTINUE TO REQUIRE PAIN MEDICATIONS GIVEN ORDERED AND EFFECTIVE.WILL CONTINUE TO OBSERVE.
[2020-09-02 16:00] VITALS: BP 104/62
--- NOTE | 2020-09-02 16:49 | NUR ---
UP OUT OF ROOM AMBULATING IN THE HALLWAY WITH STEADY GAIT DENIES DISCOMFORTS AT THIS TIME AWAITING FOR RADIOLOGY RE ETA FOR PARACENTESIS ORDERED.
--- NOTE | 2020-09-02 18:00 | NUR ---
RESTING DENIES DISCOMFORTS DENIES PAIN OR DISCOMFORTS AT THIS TIME WILL CONTINUE TO OBSERVE.
[2020-09-02] MEDS: ACETAMINOPHEN 325 MG TABLET PO PRN (19:41)
[2020-09-02 20:15] VITALS: BP 115/67
[2020-09-02] MEDS: PIPERACILLIN SODIUM/TAZOBACTAM 3.37 G in IV DEXTROSE 5% 100 ML IV SCH (21:23)
--- NOTE | 2020-09-02 22:21 | NUR ---
Patient febrile 100.1 .Tylenol given. No acute distress noted. On RA .Iv on right hand .Administered IV ATB as ordered.No a/r noted.Temp went down 98.8 .Patient c/o abd'l pain.Medicated with Dilaudid IVP.Bm x1 this A.M per patient.Will continue to monitor.
[2020-09-03] MEDS: METOCLOPRAMIDE HCL 10 MG/2 ML VIAL IV SCH ×5 (00:15→23:10)
[2020-09-03] MEDS: HYDROMORPHONE 1 MG/1 ML DISP.SYRIN IV PRN ×3 (03:48→20:27)
[2020-09-03] MEDS: PIPERACILLIN SODIUM/TAZOBACTAM 3.37 G in IV DEXTROSE 5% 100 ML IV SCH ×3 (05:32→21:12)
[2020-09-03 05:34] VITALS: BP 121/71
[2020-09-03 06:50] LABS: BASOPHILS % (AUTO) 0.4 % (0.0-2.0); EOSINOPHILS # (AUTO) 0.1 K/uL (0.0-0.7); EOSINOPHILS % (AUTO) 0.9 % (0.0-7.0); HEMATOCRIT 25.7 % (31.2-41.9); HEMOGLOBIN 8.7 g/dL (10.9-14.3); LYMPHOCYTES # (AUTO) 0.9 K/uL (20.0-40.0); LYMPHOCYTES % (AUTO) 12.9 % (20.5-51.5); MEAN CORPUSCULAR HEMOGLOBIN 30.1 uug (24.7-32.8); MEAN CORPUSCULAR HGB CONC 34 g/dL (32.3-35.6); MEAN CORPUSCULAR VOLUME 88.8 fL (75.5-95.3); MONOCYTES # (AUTO) 0.7 K/uL (2.0-10.0); MONOCYTES % (AUTO) 10.4 % (0.0-11.0); NEUTROPHILS # (AUTO) 5.3 K/uL (1.8-8.9); NEUTROPHILS % (AUTO) 75.4 % (38.5-71.5); PLATELET COUNT (AUTO) 270 K/uL (179-408); RED BLOOD CELL COUNT(AUTO) 2.89 MIL/uL (3.63-4.92)
[2020-09-03 07:10] LABS: ALANINE AMINOTRANSFERASE 46 U/L (14-59); ALKALINE PHOSPHATASE 84 U/L (50-136); ASPARTATE AMINOTRANSFERASE 34 U/L (15-37); BILIRUBIN,DIRECT 0.1 mg/dL (0.0-0.2); BILIRUBIN,TOTAL 0.4 mg/dL (0.2-1.0); CARBON DIOXIDE 32 mmol/L (21-32); CHLORIDE 105 mmol/L (98-107); CREATININE 0.5 mg/dL (0.6-1.3); GLUCOSE 115 mg/dL (74-106); LIPASE 103 U/L (73-393); MAGNESIUM 2.1 mg/dL (1.8-2.4); POTASSIUM 3.5 mmol/L (3.5-5.1); TOTAL PROTEIN, SERUM 5.3 g/dL (6.4-8.2); UREA NITROGEN, BLOOD 6 mg/dL (7-18)
--- NOTE | 2020-09-03 07:45 | NUR ---
ASLEEP EASILY AROUSABLE ON ROUNDS DENIES PAIN OR DISCOMFORTS AT THIS TIME NO NAUSEA OR VOMITING.NO ADVERSE OR ALLERGIC REACTIONS REMAIN ON ATB ORDERED CALL LIGHTS AND HER PERSONAL BELONGINGS ARE WITHIN EASY REACH WILL CONTINUE TO OBSERVE.
[2020-09-03] MEDS: GABAPENTIN 300 MG CAPSULE PO SCH ×2 (08:40→16:13)
[2020-09-03] MEDS: levoFLOXacin 750MG/D5W 750 MG in PREMIXED 1 EACH IV SCH (09:10)
--- NOTE | 2020-09-03 09:45 | NUR ---
CALL RECEIVED FROM MAKI STATED THAT DR SOTO WANTS IS THE PATIENTS GI PROVIDER AND WANTS TO TALK TO THE PATIENTS ATTENDING SO I PROVIDED HER WITH KATIE HEATON PHONE NUMBER AT THE [employer].
[2020-09-03 11:32] VITALS: BP 114/65
--- NOTE | 2020-09-03 13:15 | NUR ---
DR OWUSU HERE SEEN PATIENT WITH NO NEW ORDERS.ULTRA SOUND OF THE ABDOMEN COMPLETED ORDERED WILL AWAIT FOR RESULT.
[2020-09-03 15:33] VITALS: BP 121/77
--- NOTE | 2020-09-03 17:15 | NUR ---
PER KATIE NEVAREZ PARACENTESIS WILL NOT BE DONE BECAUSE THE ASCITIC FLUID IS SMALL AND IT HAS BOWEL LOOPS AROUND MAKING IT UNSAFE TO EVEN ATTEMPT TO REMOVE ANY FLUID SO HE ORDERED CT ABDOMEN AND PELVIS FOR TOMORROW.
--- NOTE | 2020-09-03 17:56 | NUR ---
CONSCENT FOR CT OF THE ABDOMEN AND PELVIS OBTAINED AND DOCUMENTED.PATIENT WILL BE NPO AFTER MN FOR THE TEST AND SHE WAS EDUCATED.
--- NOTE | 2020-09-03 18:08 | NUR ---
UP AND WALKING IN THE HALLWAY WITH STEADY GAIT DENIES DISCOMFORTS AT THIS TIME NO ADVERSE OR ALLERGIC REACTIONS FROM THE ATB ORDERED AFEBRILE AT THIS TIME WILL CONTINUE TO OBSERVE
--- NOTE | 2020-09-03 19:30 | NUR ---
Received patient lying in bed. AAOx4 but Iranian speaking but can speak and understanding some Indonesian. Denies any pain or SOB at this time. IV site on right hand intact and patent. Safety measure initiated and call vang within reached.
[2020-09-03 20:09] VITALS: BP 124/67
[2020-09-03] MEDS: ACETAMINOPHEN 325 MG TABLET PO PRN (20:22)
[2020-09-04 04:09] VITALS: BP 128/80
[2020-09-04] MEDS: METOCLOPRAMIDE HCL 10 MG/2 ML VIAL IV SCH ×4 (05:13→23:15)
[2020-09-04] MEDS: PIPERACILLIN SODIUM/TAZOBACTAM 3.37 G in IV DEXTROSE 5% 100 ML IV SCH ×3 (05:13→21:29)
--- NOTE | 2020-09-04 05:56 | NUR ---
AAOx4. Dilaudid 0.5mg via IV given for complain of abdominal pain and with help. Denies any SOB. Afebrile. NPO status. IV site on right hand intact and patent. No adverse reaction noted from IV ABX. Needs attended to and met. Safety measure maintained and call vang within reached.
[2020-09-04 06:48] LABS: CREATININE 0.6 mg/dL (0.6-1.3); MAGNESIUM 2.3 mg/dL (1.8-2.4); POTASSIUM 3.3 mmol/L (3.5-5.1)
[2020-09-04 06:53] LABS: BASOPHILS % (AUTO) 0.5 % (0.0-2.0); EOSINOPHILS # (AUTO) 0.1 K/uL (0.0-0.7); EOSINOPHILS % (AUTO) 1.5 % (0.0-7.0); HEMOGLOBIN 9.5 g/dL (10.9-14.3); LYMPHOCYTES # (AUTO) 1.3 K/uL (20.0-40.0); LYMPHOCYTES % (AUTO) 17.4 % (20.5-51.5); MEAN CORPUSCULAR HEMOGLOBIN 29.4 uug (24.7-32.8); MEAN CORPUSCULAR HGB CONC 33 g/dL (32.3-35.6); MEAN CORPUSCULAR VOLUME 88.9 fL (75.5-95.3); MONOCYTES # (AUTO) 0.6 K/uL (2.0-10.0); MONOCYTES % (AUTO) 7.9 % (0.0-11.0); NEUTROPHILS # (AUTO) 5.6 K/uL (1.8-8.9); NEUTROPHILS % (AUTO) 72.7 % (38.5-71.5); PLATELET COUNT (AUTO) 330 K/uL (179-408); RED BLOOD CELL COUNT(AUTO) 3.24 MIL/uL (3.63-4.92); WHITE BLOOD COUNT (AUTO) 7.6 K/uL (3.8-11.8)
[2020-09-04 07:01] LABS: HEMATOCRIT 28.8 % (31.2-41.9)
[2020-09-04] MEDS ORDERED: IOHEXOL 300MG/ML 100 ML INFUS..BTL ONE (07:35)
[2020-09-04] MEDS ORDERED: IV NORMAL SALINE 250 ML IV ONE (07:35)
[2020-09-04] MEDS ORDERED: SWABABLE VALVE TRANSFER SET EA MC ONE (07:35)
[2020-09-04] MEDS: GABAPENTIN 300 MG CAPSULE PO SCH ×2 (08:35→16:49)
--- NOTE | 2020-09-04 08:38 | NUR ---
PATIENT PICKED UP BY CHAIR TO CT SCAN OF THE ABDOMEN AND PELVIS ORDERED AND BACK TO HIS ROOM AND BREAKFAST SERVED AT THIS TIME PATIENT IS ALERT AND ORIENTED DENIES PAIN OR DISCOMFORTS AT THIS TIME REMAIN ON IV ANTIBIOTICS ORDERED WITH NO ADVERSE OR ALLERGIC REACTIONS AT THIS TIME WILL CONTINUE TO OBSERVE.
[2020-09-04] MEDS ORDERED: POTASSIUM CHLORIDE 20 MEQ TAB.PRT.SR PO ONE (09:15)
[2020-09-04] MEDS: levoFLOXacin 750MG/D5W 750 MG in PREMIXED 1 EACH IV SCH (09:47)
[2020-09-04 11:33] VITALS: BP 99/63
[2020-09-04 15:55] VITALS: BP 132/82
--- NOTE | 2020-09-04 19:30 | NUR ---
Received patient sitting in bed. at bedside. AAOx4. Denies any pain or SOB at this time. In no apparent distress. IV site on right hand intact and patent. Safety measure initiated and call vang within reached.
[2020-09-04 20:03] VITALS: BP 111/70
[2020-09-04] MEDS: HYDROMORPHONE 1 MG/1 ML DISP.SYRIN IV PRN (22:30)
[2020-09-05 04:03] VITALS: BP 115/62
[2020-09-05] MEDS: PIPERACILLIN SODIUM/TAZOBACTAM 3.37 G in IV DEXTROSE 5% 100 ML IV SCH (05:27)
[2020-09-05] MEDS: METOCLOPRAMIDE HCL 10 MG/2 ML VIAL IV SCH ×2 (05:27→12:18)
[2020-09-05] MEDS: HYDROMORPHONE 1 MG/1 ML DISP.SYRIN IV PRN (05:40)
--- NOTE | 2020-09-05 06:24 | NUR ---
AAOx4. Dilaudid 0.5mg via IV given for complain of abdominal pain and with help. Denies any SOB. IV site on right hand intact and patent. No adverse effect noted from IV ABX. Needs attended to and met. Safety measure maintained and call vang within reached.
[2020-09-05 07:12] LABS: BASOPHILS % (AUTO) 0.4 % (0.0-2.0); EOSINOPHILS # (AUTO) 0.1 K/uL (0.0-0.7); EOSINOPHILS % (AUTO) 0.9 % (0.0-7.0); HEMOGLOBIN 9.2 g/dL (10.9-14.3); LYMPHOCYTES # (AUTO) 1.3 K/uL (20.0-40.0); LYMPHOCYTES % (AUTO) 12.8 % (20.5-51.5); MEAN CORPUSCULAR HEMOGLOBIN 30.1 uug (24.7-32.8); MEAN CORPUSCULAR HGB CONC 34 g/dL (32.3-35.6); MEAN CORPUSCULAR VOLUME 88.7 fL (75.5-95.3); MONOCYTES # (AUTO) 1.1 K/uL (2.0-10.0); MONOCYTES % (AUTO) 10.5 % (0.0-11.0); NEUTROPHILS # (AUTO) 7.7 K/uL (1.8-8.9); NEUTROPHILS % (AUTO) 75.4 % (38.5-71.5); PLATELET COUNT (AUTO) 385 K/uL (179-408); RED BLOOD CELL COUNT(AUTO) 3.04 MIL/uL (3.63-4.92); WHITE BLOOD COUNT (AUTO) 10.2 K/uL (3.8-11.8)
--- NOTE | 2020-09-05 07:15 | NUR ---
Patient report received from molded frames assembler. Patient seen resting in bed. Alert and oriented x 4. Skin intact. Patient on room air saturating at 98%. Ambulatory, no complaints of weakness. Patient denies shortness of breath and pain at this time. Continent for GI/. Patient has IV on right hand 20g. Bed in low and locked position. Call light within reach. Safety precautions in place.
[2020-09-05 07:34] LABS: BILIRUBIN,TOTAL 0.3 mg/dL (0.2-1.0); CREATININE 0.6 mg/dL (0.6-1.3); MAGNESIUM 2.1 mg/dL (1.8-2.4); PHOSPHOROUS 3.9 mg/dL (2.5-4.9); POTASSIUM 4.2 mmol/L (3.5-5.1); TOTAL PROTEIN, SERUM 5.9 g/dL (6.4-8.2)
[2020-09-05] MEDS: GABAPENTIN 300 MG CAPSULE PO SCH (09:03)
[2020-09-05] MEDS ORDERED: ONDA4TAB11 SL (11:16)
[2020-09-05] MEDS ORDERED: AMOX-427 PO (11:16)
[2020-09-05] MEDS ORDERED: METR500T PO (11:16)
[2020-09-05 12:00] VITALS: BP 115/66
--- NOTE | 2020-09-05 13:00 | NUR ---
Patient discharge t home. All paperwork are printed, signed and copy given to patient. Belongings list completed and signed. All medications given as ordered. ID band and IV removed. Patient all belongings with her on discharge. Patient picked up in private vehicle by daughter Devika.
== END 2020-09-05 13:00 | disposition home or self-care (01) | DRG 438 ==
LOC: ER 21:07 → MEDSURG3 08-29 00:56
PROVIDERS: ADMIT Nurse Practitioner Family; ATTEND Hospitalist
DX: K85.90 Acute pancreatitis without necrosis or infection, unspecified (principal); K65.9 Peritonitis, unspecified; J18.9 Pneumonia, unspecified organism; R18.8 Other ascites; J98.11 Atelectasis; K21.9 Gastro-esophageal reflux disease without esophagitis; E78.5 Hyperlipidemia, unspecified; I10 Essential (primary) hypertension; K82.8 Other specified diseases of gallbladder; K29.70 Gastritis, unspecified, without bleeding; R74.01 Elevation of levels of liver transaminase levels; Z20.822 Contact with and (suspected) exposure to COVID-19; Z98.890 Other specified postprocedural states; R93.5 Abnormal findings on diagnostic imaging of other abdominal regions, including retroperitoneum
CPT/HCPCS: 36415; 70030-TC; 71045; 76705; 83690; 83735; 84100; 84703; 85025; 87040; 93005; G0378; J1170; J1956; J2185; J2270; J2405; J2543; J2765; J3490; J7050; J7060; Q0163; Q9967

== ENCOUNTER 2020-09-23 | Inpatient (IN) | payer BC ==
[~2020-09-23] VITALS: Ht 170.2 cm; Wt 74.8 kg
[~2020-09-23] MED LIST changes: +AMOX-427 PO; +CALC-953 PO; +ENAL-80 PO; -ENALAPRIL MALEATE 10 MG TAB; +ESCI5TAB PO; +GABA-532 PO; +METR500T PO; -OMEPRAZOLE DR 40 MG CAPSULE; +ONDA4TAB11 SL
--- NOTE | 2020-09-23 00:05 | NUR ---
Dr. Alves at bedside for MSE.
[2020-09-23] MEDS ORDERED: IV NORMAL SALINE 1000 ML BAG IV ONE ×2 (00:15→01:30)
[2020-09-23] MEDS ORDERED: HYDROMORPHONE 1 MG/1 ML DISP.SYRIN IV ONE (00:15)
[2020-09-23] MEDS ORDERED: ONDANSETRON 4 MG/2 ML VIAL IV ONE (00:15)
[2020-09-23 00:23] LABS: *BILIRUBIN,URIN NEGATIVE (NEGATIVE); *CLARITY,URINE CLEAR (CLEAR); *COLOR,URINE YELLOW (YELLOW); *KETONES,URINE TRACE (NEGATIVE); *UROBILINOGEN,URINE 0.2 E.U./dl (NORMAL); LEUKOCYTE ESTERASE ,URINE NEGATIVE (NEGATIVE); NITRITE, URINE NEGATIVE (NEGATIVE); PH,URINE 5.5 (5.0-8.0); UGLUCOSE NEGATIVE (NEGATIVE)
[2020-09-23] MEDS ORDERED: HYDROMORPHONE 1 MG/1 ML DISP.SYRIN ONE (00:23)
[2020-09-23] MEDS ORDERED: ONDANSETRON 4 MG/2 ML VIAL ONE (00:24)
[2020-09-23 00:29] LABS: *BLOOD, URINE TRACE LYSED (NEGATIVE)
[2020-09-23 00:33] LABS: BACTERIA,URINE NONE SEEN /HPF (NONE SEEN); RBC,URINE 0-3 /HPF (0-3); WBC,URINE 0-3 /HPF (0-3)
[2020-09-23] MEDS ORDERED: IV NORMAL SALINE 250 ML IV ONE (00:45)
[2020-09-23] MEDS ORDERED: IOHEXOL 300MG/ML 100 ML INFUS..BTL ONE (00:45)
[2020-09-23] MEDS ORDERED: SWABABLE VALVE TRANSFER SET EA MC ONE (00:45)
[2020-09-23 00:46] LABS: BASOPHILS # (AUTO) 0.1 K/uL (0.0-8.0); BASOPHILS % (AUTO) 0.8 % (0.0-2.0); EOSINOPHILS # (AUTO) 0.1 K/uL (0.0-0.7); EOSINOPHILS % (AUTO) 0.9 % (0.0-7.0); HEMATOCRIT 32.5 % (31.2-41.9); HEMOGLOBIN 10.8 g/dL (10.9-14.3); LYMPHOCYTES # (AUTO) 1.4 K/uL (20.0-40.0); LYMPHOCYTES % (AUTO) 17.5 % (20.5-51.5); MEAN CORPUSCULAR HEMOGLOBIN 29.9 uug (24.7-32.8); MEAN CORPUSCULAR HGB CONC 33 g/dL (32.3-35.6); MONOCYTES # (AUTO) 0.6 K/uL (2.0-10.0); MONOCYTES % (AUTO) 7.8 % (0.0-11.0); NEUTROPHILS # (AUTO) 5.9 K/uL (1.8-8.9); PLATELET COUNT (AUTO) 348 K/uL (179-408); WHITE BLOOD COUNT (AUTO) 8.2 K/uL (3.8-11.8)
[2020-09-23 00:58] LABS: BILIRUBIN,DIRECT 0.1 mg/dL (0.0-0.2); BILIRUBIN,TOTAL 0.3 mg/dL (0.2-1.0); CREATININE 0.8 mg/dL (0.6-1.3); POTASSIUM 4.2 mmol/L (3.5-5.1); TOTAL PROTEIN, SERUM 6.6 g/dL (6.4-8.2)
--- NOTE | 2020-09-23 01:15 | NUR ---
Pt out of ER for CT.
[2020-09-23] MEDS ORDERED: PIPERACILLIN SODIUM/TAZOBACTAM 3.375 G in IV DEXTROSE 5% 50 ML IV ONE (01:30)
--- NOTE | 2020-09-23 01:35 | NUR ---
Patient back to ER from CT.
[2020-09-23] MEDS ORDERED: PIPERACILLIN/TAZOBACTAM/D5W 50 ML IV ONE (01:38)
--- NOTE | 2020-09-23 01:38 | NUR ---
Xray at bedside.
--- NOTE | 2020-09-23 02:29 | NUR ---
Called [employer] to page to Nazanin Milan NP.
--- NOTE | 2020-09-23 02:42 | NUR ---
Dr. Alves on panel call with Nazanin Milan ETHNOGRAPHER. Patient accepted for admission to [facility], diagnosis: pancreatitis/abdominal pain.
--- NOTE | 2020-09-23 02:47 | NUR ---
Dr. Alves speaking with Dr. Marco Antonio Graham for GI consult.
--- NOTE | 2020-09-23 03:00 | NUR ---
Admitted patient to Medsur unit from Er via wheelchair accompanied by Er nurse and patient's daughter.Patient jordanian speaking alert x 4.Dx Acute pancreatitis .On RA.saturating well.No s/s of distress noted. Ambulates to bathroom.Iv on left AC 20 patent and intact.Started IVF NS 0.9 running at 100 ml/hr.Tolerated well.Skin assessment done.No skin breakdown.Patient is NPO .Call light with in reach.VSS.Will continue to monitor. Addendum: 09/23/20 at 0536 by JORDIN LOYA RN Time change:Patient brought to med surg at 0332.
--- NOTE | 2020-09-23 03:03 | NUR ---
Report given to Shaylee COHN Medsurg.
--- NOTE | 2020-09-23 03:03 | NUR ---
Latoya gutierrez in [facility] - 09/23/20 at 0318 by ANA ROSA Report given to Elva cunningham
[2020-09-23] MEDS ORDERED: Z GUARD REMEDY PASTE 57 GM TUBE TOP PRN (03:30)
[2020-09-23] MEDS ORDERED: ONDANSETRON 4 MG/2 ML VIAL IV PRN (03:30)
[2020-09-23] MEDS ORDERED: ZOLPIDEM 5 MG TABLET PO PRN (03:30)
[2020-09-23] MEDS ORDERED: MAGNESIUM HYDROXIDE 30 ML LIQUID UDC PO PRN (03:30)
--- NOTE | 2020-09-23 03:32 | NUR ---
Admitted patient to Medsurg unit from Er via wheelchair accompanied by Er nurse and patient's daughter.Patient indian speaking alert x 4.Dx Acute pancreatitis .On RA.saturating well.No s/s of distress noted. Ambulates to bathroom.Iv on left AC 20 patent and intact.Started IVF NS 0.9 running at 100 ml/hr.Tolerated well.Skin assessment done.No skin breakdown.Patient is NPO .Call light with in reach.VSS.Will continue to monitor.
[2020-09-23] MEDS: IV NS 1000 ML 1,000 ML IV PRN ×2 (04:54→16:32)
[2020-09-23 05:42] VITALS: BP 139/71
[2020-09-23] MEDS ORDERED: PIPERACILLIN SODIUM/TAZOBACTAM 3.375 G in IV DEXTROSE 5% 50 ML IV SCH (06:00)
[2020-09-23] MEDS: MORPHINE SULFATE 2 MG/1 ML DISP.SYRIN IV PRN (07:00)
[2020-09-23] MEDS: CALCIUM CARB/VITAMIN D 500MG-200UNITS TABLET PO SCH (08:11)
[2020-09-23] MEDS: ENALAPRIL 10 MG TABLET PO SCH (08:12)
[2020-09-23] MEDS: GABAPENTIN 100 MG CAPSULE PO SCH ×2 (08:12→16:26)
[2020-09-23] MEDS: ESCITALOPRAM OXALATE 10 MG TABLET PO SCH (08:12)
[2020-09-23] MEDS: PIPERACILLIN SODIUM/TAZOBACTAM 3.37 G in IV DEXTROSE 5% 100 ML IV SCH ×2 (08:33→16:27)
[2020-09-23 11:49] VITALS: BP 99/61
[2020-09-23 15:37] VITALS: BP 100/58
[2020-09-23] MEDS: HYDROCODONE/APAP 5-325MG TABLET PO PRN (16:32)
[2020-09-23 20:18] VITALS: BP 123/71
[2020-09-24] MEDS: PIPERACILLIN SODIUM/TAZOBACTAM 3.37 G in IV DEXTROSE 5% 100 ML IV SCH ×3 (00:17→16:27)
[2020-09-24] MEDS: MORPHINE SULFATE 2 MG/1 ML DISP.SYRIN IV PRN (03:21)
[2020-09-24] MEDS: IV NS 1000 ML 1,000 ML IV PRN ×2 (06:37→19:15)
[2020-09-24 06:41] LABS: BASOPHILS % (AUTO) 1.5 % (0.0-2.0); EOSINOPHILS # (AUTO) 0.1 K/uL (0.0-0.7); HEMATOCRIT 30.2 % (31.2-41.9); LYMPHOCYTES # (AUTO) 1.7 K/uL (20.0-40.0); LYMPHOCYTES % (AUTO) 53.9 % (20.5-51.5); MEAN CORPUSCULAR HGB CONC 33 g/dL (32.3-35.6); MEAN CORPUSCULAR VOLUME 90.1 fL (75.5-95.3); MONOCYTES # (AUTO) 0.3 K/uL (2.0-10.0); MONOCYTES % (AUTO) 10.9 % (0.0-11.0); NEUTROPHILS # (AUTO) 0.9 K/uL (1.8-8.9); NEUTROPHILS % (AUTO) 29.7 % (38.5-71.5); PLATELET COUNT (AUTO) 284 K/uL (179-408); RED BLOOD CELL COUNT(AUTO) 3.35 MIL/uL (3.63-4.92); WHITE BLOOD COUNT (AUTO) 3.1 K/uL (3.8-11.8)
[2020-09-24] MEDS: ACETAMINOPHEN 325 MG TABLET PO PRN ×2 (06:41→16:47)
[2020-09-24 06:51] LABS: CREATININE 0.7 mg/dL (0.6-1.3); MAGNESIUM 1.9 mg/dL (1.8-2.4); PHOSPHOROUS 4.6 mg/dL (2.5-4.9); POTASSIUM 4.8 mmol/L (3.5-5.1)
--- NOTE | 2020-09-24 07:00 | NUR ---
pt received in the room sleeping call light with in reach.vs are stable .
[2020-09-24] MEDS: GABAPENTIN 100 MG CAPSULE PO SCH ×2 (08:02→16:22)
[2020-09-24] MEDS: CALCIUM CARB/VITAMIN D 500MG-200UNITS TABLET PO SCH (08:02)
[2020-09-24] MEDS: ESCITALOPRAM OXALATE 10 MG TABLET PO SCH (08:02)
[2020-09-24] MEDS: ENALAPRIL 10 MG TABLET PO SCH (08:03)
--- NOTE | 2020-09-24 09:00 | NUR ---
pt seen by dr little new orders received noted and carried out
[2020-09-24] MEDS: HYDROCODONE/APAP 5-325MG TABLET PO PRN ×2 (09:08→22:31)
[2020-09-24 11:59] VITALS: BP 100/60
[2020-09-24 16:00] VITALS: BP 114/74
--- NOTE | 2020-09-24 19:30 | NUR ---
Patient alert oriented, no complain of pain at this time. Patient in bed resting, brp, cont to monitor.
[2020-09-24 20:24] VITALS: BP 114/67
[2020-09-25] MEDS: PIPERACILLIN SODIUM/TAZOBACTAM 3.37 G in IV DEXTROSE 5% 100 ML IV SCH ×2 (00:26→09:30)
[2020-09-25 04:27] VITALS: BP 116/65
--- NOTE | 2020-09-25 06:15 | NUR ---
Patient alert oriented, no sob no chest pain, complain of lower abdominal pain, medicated for pain. Patient pain controlled at this time. Patient brp, tolerate well will cont to monitor.
--- NOTE | 2020-09-25 07:30 | NUR ---
Received patient awake, alert and oriented times 4. No sign of distress noted. Patient is on IV fluids running NS at 100mls/hr. Patient is on room air saturating well. Patient denies any pain or SOB. Safety precautions are in place. Will continue to monitor.
[2020-09-25] MEDS ORDERED: ONDA4TAB5 PO (08:33)
[2020-09-25] MEDS ORDERED: HYDR-3972 PO (08:33)
[2020-09-25] MEDS ORDERED: AMOX-430 PO (08:33)
[2020-09-25] MEDS: ESCITALOPRAM OXALATE 10 MG TABLET PO SCH (09:30)
[2020-09-25] MEDS: CALCIUM CARB/VITAMIN D 500MG-200UNITS TABLET PO SCH (09:30)
[2020-09-25] MEDS: GABAPENTIN 100 MG CAPSULE PO SCH (09:31)
[2020-09-25] MEDS: ENALAPRIL 10 MG TABLET PO SCH (09:38)
[2020-09-25 12:00] VITALS: BP 106/54
--- NOTE | 2020-09-25 14:40 | NUR ---
Patient discharge to home with all paperwork and belongings. Patient belongings list completed and signed. Gave all medications as ordered. ID band and IV removed. Patient left in stable conditions. Denies any pain or SOB. Patient left in private vehicle with daughter Devika.
== END 2020-09-25 14:40 | disposition home or self-care (01) | DRG 438 ==
LOC: ER 00:02 → MEDSURG3 03:17
PROVIDERS: ADMIT Internal Medicine; ATTEND Nurse Practitioner Acute Care
DX: K86.3 Pseudocyst of pancreas (principal); K65.9 Peritonitis, unspecified; J98.11 Atelectasis; R18.8 Other ascites; E78.5 Hyperlipidemia, unspecified; I10 Essential (primary) hypertension; K44.9 Diaphragmatic hernia without obstruction or gangrene; K83.8 Other specified diseases of biliary tract; Z20.822 Contact with and (suspected) exposure to COVID-19
CPT/HCPCS: 36415; 70030-TC; 71045; 83605; 83690; 83735; 84100; 85025; 85730; 87040; 87086; G0378; J1170; J2270; J2405; J2543; J7030; J7050; J7060; Q9967

== ENCOUNTER 2021-04-02 18:33 | Emergency (ER) | payer BC ==
[~2021-04-02] VITALS: Ht 170.2 cm; Wt 77.1 kg
[~2021-04-02 18:33] MED LIST changes: -AMOX-427 PO; +AMOX-430 PO; +HYDR-3972 PO; -METR500T PO; +ONDA4TAB5 PO
[2021-04-02] MEDS ORDERED: ONDANSETRON 4 MG/2 ML VIAL IV ONE (19:15)
[2021-04-02] MEDS ORDERED: IV NORMAL SALINE 1000 ML BAG IV ONE (19:15)
[2021-04-02] MEDS ORDERED: MORPHINE SULFATE 2 MG/1 ML DISP.SYRIN IV ONE (19:15)
[2021-04-02 19:31] LABS: HEMATOCRIT 35.9 % (31.2-41.9); MEAN CORPUSCULAR HEMOGLOBIN 29.3 uug (24.7-32.8); MEAN CORPUSCULAR VOLUME 88.1 fL (75.5-95.3); PLATELET COUNT (AUTO) 380 K/uL (179-408)
[2021-04-02] MEDS ORDERED: SWABABLE VALVE TRANSFER SET EA MC ONE (19:33)
[2021-04-02] MEDS ORDERED: MORPHINE SULFATE 4 MG/1 ML DISP.SYRIN ONE (19:34)
[2021-04-02] MEDS ORDERED: IOHEXOL 300MG/ML 100 ML INFUS..BTL ONE (19:34)
[2021-04-02] MEDS ORDERED: IV NORMAL SALINE 250 ML IV ONE (19:34)
[2021-04-02] MEDS ORDERED: ONDANSETRON 4 MG/2 ML VIAL ONE (19:34)
[2021-04-02 19:36] LABS: *BILIRUBIN,URIN NEGATIVE (NEGATIVE); *CLARITY,URINE CLEAR (CLEAR); *COLOR,URINE YELLOW (YELLOW); *KETONES,URINE TRACE (NEGATIVE); *UROBILINOGEN,URINE 0.2 E.U./dl (NORMAL); LEUKOCYTE ESTERASE ,URINE NEGATIVE (NEGATIVE); NITRITE, URINE NEGATIVE (NEGATIVE); UGLUCOSE NEGATIVE (NEGATIVE)
[2021-04-02 19:36] LABS: CARBON DIOXIDE 28 mmol/L (21-32); CHLORIDE 104 mmol/L (98-107); CREATININE 0.7 mg/dL (0.6-1.3); GLUCOSE 131 mg/dL (74-106); UREA NITROGEN, BLOOD 21 mg/dL (7-18)
[2021-04-02 19:39] LABS: *BLOOD, URINE TRACE (NEGATIVE)
[2021-04-02 19:42] LABS: WBC,URINE 0-3 /HPF (0-3)
[2021-04-02 19:42] LABS: ALANINE AMINOTRANSFERASE 24 U/L (14-59); ALKALINE PHOSPHATASE 93 U/L (50-136); ASPARTATE AMINOTRANSFERASE 14 U/L (15-37); BILIRUBIN,DIRECT 0.1 mg/dL (0.0-0.2); BILIRUBIN,TOTAL 0.2 mg/dL (0.2-1.0); LIPASE 945 U/L (73-393); TOTAL PROTEIN, SERUM 7.4 g/dL (6.4-8.2)
[2021-04-02 19:43] LABS: BACTERIA,URINE FEW /HPF (NONE SEEN); CALCIUM OXALATE CRYSTALS,UR FEW /HPF (NONE SEEN); MUCUS,URINE FEW /LPF (0-FEW); SQUAMOUS EPITHELIAL CELL,UR FEW /HPF (NONE SEEN)
[2021-04-02] MEDS ORDERED: HYDR-3980 PO (20:58)
--- NOTE | 2021-04-02 21:15 | NUR ---
DR FORD AT BEDSIDE MADE PATIENT AWARE OF TEST RESULTS WILL BE DC HOME.
--- NOTE | 2021-04-02 21:24 | NUR ---
Patient discharged to home in stable condition. Written and verbal after care instructions given. Patient and daughter verbalized understanding of instructions. Stressed follow up or return to ER for worsening s/s.
[2021-04-02 21:25] VITALS: BP 120/75
== END 2021-04-02 21:29 | disposition home or self-care (01) ==
LOC: ER 18:34
DX: K85.90 Acute pancreatitis without necrosis or infection, unspecified (principal); E78.5 Hyperlipidemia, unspecified; I10 Essential (primary) hypertension; K21.9 Gastro-esophageal reflux disease without esophagitis; Z87.01 Personal history of pneumonia (recurrent); Z88.4 Allergy status to anesthetic agent; Z88.1 Allergy status to other antibiotic agents
CPT/HCPCS: 36415; 71045; 74177; 76705; 80048; 80076; 81001; 82140; 83690; 84484; 84702; 85025; 93005; 96361; 96374; 96375; 99285; J2270; J2405; Q9967; 70030-TC; A4663; J7030; J7050

== ENCOUNTER 2022-01-03 18:13 | Emergency (ER) | payer SELFPAY ==
[~2022-01-03 18:13] MED LIST changes: +HYDR-3980 PO
== END 2022-01-03 20:26 | disposition left against medical advice (07) ==
LOC: ER 18:13
DX: Z53.21 Procedure and treatment not carried out due to patient leaving prior to being seen by health care provider (principal)

== ENCOUNTER 2023-01-12 22:31 | Emergency (ER) | payer BC ==
[~2023-01-12] VITALS: Ht 170.2 cm; Wt 74.8 kg
[2023-01-12 22:41] VITALS: O2SAT 100
== END 2023-01-13 00:45 | disposition left against medical advice (07) ==
LOC: ER 22:33
DX: Z53.21 Procedure and treatment not carried out due to patient leaving prior to being seen by health care provider (principal)
CPT/HCPCS: A4663

== ENCOUNTER 2023-11-02 22:52 | Emergency (ER) | payer BC ==
[~2023-11-02] VITALS: Ht 172.7 cm; Wt 75.7 kg
[2023-11-02 23:57] LABS: BASOPHILS # (AUTO) 0.1 K/UL (0.0-0.2); BASOPHILS % (AUTO) 1.2 % (0.0-2.0); EOSINOPHILS # (AUTO) 0.1 K/uL (0.0-0.7); EOSINOPHILS % (AUTO) 1.3 % (0.0-7.0); HEMATOCRIT 40.8 % (31.2-41.9); HEMOGLOBIN 13.4 g/dL (10.9-14.3); LYMPHOCYTES # (AUTO) 2.9 K/uL (0.8-4.8); LYMPHOCYTES % (AUTO) 40.6 % (20.5-51.5); MEAN CORPUSCULAR HEMOGLOBIN 29.1 uug (24.7-32.8); MEAN CORPUSCULAR HGB CONC 33 g/dL (32.3-35.6); MEAN CORPUSCULAR VOLUME 88.7 fL (75.5-95.3); MONOCYTES # (AUTO) 0.5 K/uL (0.1-1.30); MONOCYTES % (AUTO) 7.2 % (0.0-11.0); NEUTROPHILS # (AUTO) 3.5 K/uL (1.8-8.9); NEUTROPHILS % (AUTO) 49.7 % (38.5-71.5); PLATELET COUNT (AUTO) 346 K/uL (179-408); RED CELL DISTRIBUTION WIDTH 18.3 % (12.3-17.7)
[2023-11-02] MEDS: FAMOTIDINE. 20 MG/2 ML VIAL IV ONE (23:59)
[2023-11-02] MEDS: ONDANSETRON 4 MG/2 ML VIAL IV ONE (23:59)
[2023-11-02] MEDS: IV NORMAL SALINE 1000 ML BAG IV ONE (23:59)
[2023-11-03 00:01] LABS: DIFFERENTIAL COMMENT 1
[2023-11-03 00:03] LABS: *BILIRUBIN,URIN NEGATIVE (NEGATIVE); *BLOOD, URINE 1+ (NEGATIVE); *CLARITY,URINE CLEAR (CLEAR); *COLOR,URINE YELLOW (YELLOW); *KETONES,URINE TRACE (NEGATIVE); *PROTEIN,URINE NEGATIVE (NEGATIVE); *UROBILINOGEN,URINE 0.2 E.U./dl (NORMAL); LEUKOCYTE ESTERASE ,URINE NEGATIVE (NEGATIVE); NITRITE, URINE NEGATIVE (NEGATIVE); PH,URINE 5.5 (5.0-8.0); UGLUCOSE NEGATIVE (NEGATIVE)
[2023-11-03 00:14] LABS: CALCIUM 9.1 mg/dL (8.5-10.1); CREATININE 0.9 mg/dL (0.6-1.3); POTASSIUM 4.5 mmol/L (3.5-5.1)
[2023-11-03 00:20] LABS: ALBUMIN 3.7 g/dL (3.4-5.0); BILIRUBIN,DIRECT 0.1 mg/dL (0.0-0.2); BILIRUBIN,TOTAL 0.4 mg/dL (0.2-1.0); TOTAL PROTEIN, SERUM 7.4 g/dL (6.4-8.2)
[2023-11-03] MEDS: MORPHINE SULFATE 4 MG/1 ML DISP.SYRIN IV ONE (00:47)
[2023-11-03] MEDS ORDERED: MORPHINE SULFATE 4 MG/1 ML DISP.SYRIN ONE (00:48)
[2023-11-03] MEDS ORDERED: SWABABLE VALVE TRANSFER SET EA MC ONE (00:55)
[2023-11-03] MEDS ORDERED: IOHEXOL 300MG/ML 100 ML INFUS..BTL ONE (00:55)
[2023-11-03] MEDS ORDERED: IV NORMAL SALINE 250 ML IV ONE (00:55)
[2023-11-03] MEDS ORDERED: KETOROLAC TROMETHAMINE 30 MG INJ ONE (01:10)
[2023-11-03] MEDS ORDERED: ONDA4TAB11 PO (02:42)
[2023-11-03] MEDS ORDERED: FAMO-132 PO (02:42)
[2023-11-03 02:49] VITALS: BP 110/69; O2SAT 98
[2023-11-03 02:54] LABS: BACTERIA,URINE FEW /HPF (NONE SEEN); SQUAMOUS EPITHELIAL CELL,UR FEW /HPF (NONE SEEN); WBC,URINE NONE SEEN /HPF (0-3)
== END 2023-11-03 02:50 | disposition home or self-care (01) ==
LOC: ER 22:55
DX: R10.13 Epigastric pain (principal); R11.2 Nausea with vomiting, unspecified; K21.9 Gastro-esophageal reflux disease without esophagitis; E78.5 Hyperlipidemia, unspecified; Z98.890 Other specified postprocedural states; Z79.899 Other long term (current) drug therapy; Z88.1 Allergy status to other antibiotic agents
CPT/HCPCS: 99285; 96374; 96361; 96375 ×2; 80076; 80048; 81001; 83690; 85025; 85730; 36415; 74177; J3490; J2405; J1885; Q9967; J2270; J7040; A4606; A4663

== ENCOUNTER 2024-05-18 11:25 | Emergency (ER) | payer BC ==
[~2024-05-18] VITALS: Ht 167.6 cm; Wt 72.6 kg
[~2024-05-18 11:25] MED LIST changes: +FAMO-132 PO; +ONDA4TAB11 PO
[2024-05-18] MEDS ORDERED: AMOXICILLIN-CLAVUL 875-125MG TABLET ONE (11:43)
[2024-05-18] MEDS ORDERED: TDAP DIPH,PERTUSS,TET VAC/PF 0.5 ML DISP.SYRIN IM ONE (11:44)
[2024-05-18] MEDS ORDERED: AMOX-430 PO (11:44)
[2024-05-18] MEDS: AMOXICILLIN-CLAVUL 875-125MG TABLET PO ONE (11:51)
[2024-05-18] MEDS: TDAP DIPH,PERTUSS,TET VAC/PF 0.5 ML DISP.SYRIN IM ONE (11:51)
[2024-05-18 11:59] VITALS: BP 131/78; O2SAT 98
== END 2024-05-18 12:01 | disposition home or self-care (01) ==
LOC: ER 11:26
DX: E78.5 Hyperlipidemia, unspecified (principal); K21.9 Gastro-esophageal reflux disease without esophagitis; Z79.899 Other long term (current) drug therapy; Z87.19 Personal history of other diseases of the digestive system; Z88.1 Allergy status to other antibiotic agents; W53.21XA Bitten by squirrel, initial encounter; Y93.89 Activity, other specified; Y92.89 Other specified places as the place of occurrence of the external cause; Y99.8 Other external cause status
CPT/HCPCS: 90715; A4606; A4663

== ENCOUNTER 2025-01-01 20:58 | Emergency (ER) | payer BC ==
[~2025-01-01] VITALS: Ht 170.2 cm; Wt 72.6 kg
[2025-01-01 21:54] LABS: PLATELET COUNT (AUTO) 297 K/uL (179-408); RED BLOOD CELL COUNT(AUTO) 4.00 MIL/uL (3.63-4.92); RED CELL DISTRIBUTION WIDTH 13.3 % (12.3-17.7); WHITE BLOOD COUNT (AUTO) 8.7 K/uL (3.8-11.8)
[2025-01-01 21:56] LABS: *BLOOD, URINE 3+ (NEGATIVE); *CLARITY,URINE CLOUDY (CLEAR); *COLOR,URINE YELLOW (YELLOW); *KETONES,URINE TRACE (NEGATIVE); *PROTEIN,URINE 2+ (NEGATIVE); *UROBILINOGEN,URINE 0.2 E.U./dl (NORMAL); LEUKOCYTE ESTERASE ,URINE NEGATIVE (NEGATIVE); NITRITE, URINE NEGATIVE (NEGATIVE); UGLUCOSE NEGATIVE (NEGATIVE)
[2025-01-01 21:59] LABS: *BILIRUBIN,URIN 1+ (NEGATIVE)
[2025-01-01] MEDS ORDERED: HYDROMORPHONE 1 MG/1 ML DISP.SYRIN ONE (22:00)
[2025-01-01] MEDS ORDERED: ONDANSETRON 4 MG/2 ML VIAL ONE (22:00)
[2025-01-01 22:02] LABS: CREATININE 0.5 mg/dL (0.6-1.3); SODIUM SERUM 139.0 mmol/L (136-145); UREA NITROGEN, BLOOD 17.0 mg/dL (7-18)
[2025-01-01 22:03] LABS: CALCIUM OXALATE CRYSTALS,UR FEW /HPF (NONE SEEN)
[2025-01-01 22:08] LABS: ASPARTATE AMINOTRANSFERASE 5.0 U/L (15-37); TOTAL PROTEIN, SERUM 7.0 g/dL (6.4-8.2)
[2025-01-01] MEDS: IV NORMAL SALINE 1000 ML BAG IV ONE (22:13)
[2025-01-01] MEDS: HYDROMORPHONE 1 MG/1 ML DISP.SYRIN IV ONE (22:13)
[2025-01-01] MEDS: ONDANSETRON 4 MG/2 ML VIAL IV ONE (22:13)
[2025-01-01] MEDS ORDERED: IOHEXOL 300MG/ML 100 ML INFUS..BTL ONE (22:29)
[2025-01-01 22:31] LABS: PREGNANCY TEST SERUM QUAN 2.0 miul/L (0-6)
[2025-01-01] MEDS ORDERED: KETOROLAC TROMETHAMINE 30 MG INJ ONE (23:22)
[2025-01-01] MEDS: KETOROLAC TROMETHAMINE 30 MG INJ IVP ONE (23:29)
[2025-01-01] MEDS ORDERED: ONDA4TAB11 PO (23:41)
[2025-01-01] MEDS ORDERED: HYDR-3980 PO (23:41)
[2025-01-02 00:05] VITALS: BP 125/78; O2SAT 99
== END 2025-01-02 00:10 | disposition home or self-care (01) ==
LOC: ER 20:58
DX: R10.31 Right lower quadrant pain (principal); R31.0 Gross hematuria; R10.11 Right upper quadrant pain; R10.2 Pelvic and perineal pain; K21.9 Gastro-esophageal reflux disease without esophagitis; E78.5 Hyperlipidemia, unspecified; F17.210 Nicotine dependence, cigarettes, uncomplicated; Z79.899 Other long term (current) drug therapy; Z87.19 Personal history of other diseases of the digestive system; Z88.1 Allergy status to other antibiotic agents
CPT/HCPCS: 99285; 74177; 76705; 96374; 96375; 71045; 80076; 80048; 81001; 83690; 85025; 84702; 36415; 76856; J1885; J2405; Q9967; J1171; J7040; A4606; A4663